=== PATIENT | male | born 1940 | race Caucasian/White ===

== ENCOUNTER 2023-03-11 09:52 | Inpatient (IN) ==
[2023-03-11] MEDS ORDERED: ONDANSETRON 4 MG/2 ML VIAL IV ONE (10:13)
[2023-03-11] MEDS ORDERED: LACTATED RINGERS 1,000 ML IV ONE (10:13)
[2023-03-11 10:35] LABS: POC Calcium, Ionized 1.19 (1.16-1.32); POC Creatinine 2.3 (0.6-1.2); POC Potassium 2.8 (3.3-5.1)
[2023-03-11] MEDS ORDERED: POTASSIUM CHLORIDE 20 MEQ in DEXTROSE 5% IN WATER 250 ML IV ONE (10:38)
[2023-03-11] MEDS ORDERED: POTASSIUM CHLORIDE 20 MEQ TABLET PO ONE (10:38)
[2023-03-11] MEDS ORDERED: ceFAZolin 1 GM VIAL IV ONE (10:39)
[2023-03-11 11:29] LABS: Basophils # (Auto) 0.08 K/mcL (0.00-0.30); Basophils % (Auto) 0.5 % (0.0-2.0); Eosinophils # (Auto) 0.05 K/mcL (0.00-0.70); Eosinophils % (Auto) 0.3 % (0.0-7.0); Hematocrit 37.6 % (40.1-51.0); Hemoglobin 12.6 g/dL (13.7-17.5); Lymphocytes # (Auto) 0.68 K/mcL (1.50-4.80); Lymphocytes % (Auto) 3.9 % (15.5-49.0); Mean Corpuscular HGB Conc 33.5 g/dL (31.0-36.0); Mean Platelet Volume 10.7 fL (8.8-12.5); Monocytes # (Auto) 1.53 K/mcL (0.10-0.90); Monocytes % (Auto) 8.9 % (1.0-12.0); Neutrophils % (Auto) 85.8 % (38.0-78.0); Platelet Count 405 K/mcL (140-440); RBC 4.18 M/mcL (4.63-6.08); Red Cell Distribution Width 12.8 % (11.5-14.5); WBC 17.2 K/mcL (4.5-11.0)
[2023-03-11] MEDS ORDERED: 0.9 % SODIUM CHLORIDE 1,000 ML IV ONE (11:44)
[2023-03-11 11:50] LABS: ALT/SGPT 16 U/L (<40); AST/SGOT 11 U/L (<40); Albumin 3.9 gm/dL (3.2-5.2); Alkaline Phosphatase 75 U/L (39-117); Bilirubin,Direct < 0.2 mg/dL (0-0.3); Bilirubin,Total 0.7 mg/dL (0.1-1.0); Globulin 3.8 gm/dL (2.2-3.7)
[2023-03-11 13:08] LABS: POC Calcium, Ionized 1.09 (1.16-1.32); POC Creatinine 1.9 (0.6-1.2); POC Potassium 3.1 (3.3-5.1)
[2023-03-11] MEDS ORDERED: MAGNESIUM SULFATE 2 GM/50 ML BAG IV PRN (16:16)
[2023-03-11] MEDS ORDERED: ONDANSETRON 4 MG/2 ML VIAL IV PRN (16:16)
[2023-03-11] MEDS ORDERED: 0.9 % SODIUM CHLORIDE 1,000 ML IV SCH (16:16)
[2023-03-11] MEDS ORDERED: POTASSIUM CHLORIDE 40 MEQ in DEXTROSE 5% IN WATER 500 ML IV PRN (16:16)
[2023-03-11] MEDS ORDERED: BISMUTH SUBSALICYLATE 15 ML ORAL.SUSP PO ONE (16:16)
[2023-03-11] MEDS ORDERED: IPRATROPIUM/ALBUTEROL 3 ML AMPUL.NEB NEB PRN (16:16)
[2023-03-11] MEDS ORDERED: ACETAMINOPHEN 325 MG TABLET PO PRN (16:16)
[2023-03-11] MEDS ORDERED: POTASSIUM CHLORIDE 20 MEQ TABLET PO PRN ×2 (16:16)
[2023-03-11] MEDS ORDERED: BISMUTH SUBSALICYLATE 15 ML ORAL.SUSP PO PRN (16:16)
[2023-03-11 16:17] LABS: Eosinophils % (Manual) 1 % (0-7); Lymphocytes % 6 % (15-49); Monocytes % (Manual) 5 % (1-12); Platelet Estimate NORMAL (Normal); RBC Morphology NORMAL (Normal); Segmented Neutrophils % 88 % (38-78)
[2023-03-11 18:09] LABS: Appearance,Urine CLOUDY (Clear); Bacteria,Urine FEW /hpf (0); Bilirubin,Urine Negative (Negative); Color,Urine YELLOW; Culture Indicated,Urine Yes; Glucose,Urine (UA) Negative (Negative); Ketones,Urine 5 mg/dL (Negative); Leukocyte Esterase,Urine 500 /uL (Negative); Mucus,Urine FEW /hpf; Nitrate,Urine Negative (Negative); Protein,Urine Negative (Negative); Specific Gravity,Urine 1.011 (1.000-1.035); Uric Acid Crystals,Urine FEW /hpf; Urine Blood 0.03 mg/dL (Negative); Urine RBC 4 /hpf (0-3); Urine Squamous Epithelial Cell 0 /hpf (0-4); Urine WBC 145 /hpf (0-4); Urobilinogen,Urine Negative
[2023-03-11] MEDS ORDERED: HEPARIN 5,000 UNIT/ML VIAL SQ SCH (21:00)
[2023-03-11] MEDS: 0.9 % SODIUM CHLORIDE 10 ML SYRINGE IV SCH (21:02)
[2023-03-11] MEDS: cefTRIAXone 1 GM VIAL IV SCH (21:02)
[2023-03-12] MEDS: 0.9 % SODIUM CHLORIDE 10 ML SYRINGE IV SCH ×3 (05:01→21:17)
[2023-03-12 06:59] LABS: Basophils # (Auto) 0.07 K/mcL (0.00-0.30); Basophils % (Auto) 0.5 % (0.0-2.0); Eosinophils # (Auto) 0.08 K/mcL (0.00-0.70); Eosinophils % (Auto) 0.6 % (0.0-7.0); Hematocrit 32.5 % (40.1-51.0); Hemoglobin 11.4 g/dL (13.7-17.5); Lymphocytes # (Auto) 0.72 K/mcL (1.50-4.80); Lymphocytes % (Auto) 5.3 % (15.5-49.0); Mean Cell Volume 85.8 fL (80.0-100.0); Mean Corpuscular HGB Conc 35.1 g/dL (31.0-36.0); Mean Platelet Volume 11.2 fL (8.8-12.5); Monocytes # (Auto) 1.39 K/mcL (0.10-0.90); Monocytes % (Auto) 10.2 % (1.0-12.0); Neutrophils % (Auto) 82.8 % (38.0-78.0); Platelet Count 341 K/mcL (140-440); RBC 3.79 M/mcL (4.63-6.08); Red Cell Distribution Width 12.8 % (11.5-14.5); WBC 13.6 K/mcL (4.5-11.0)
[2023-03-12 07:26] LABS: ALT/SGPT 13 U/L (<40); AST/SGOT 13 U/L (<40); Albumin 3.3 gm/dL (3.2-5.2); Alkaline Phosphatase 65 U/L (39-117); Bilirubin,Direct < 0.2 mg/dL (0-0.3); Bilirubin,Total 0.5 mg/dL (0.1-1.0); Blood Urea Nitrogen 38 mg/dL (8-23); Calcium 8.9 mg/dL (8.6-10.4); Carbon Dioxide 20 mmol/L (22-30); Chloride 103 mmol/L (96-108); Globulin 3.4 gm/dL (2.2-3.7); Glomerular Filtration Rate 51; Glucose 101 mg/dL (70-105); Lactate Dehydrogenase 161 U/L (135-225); Phosphorous 2.1 mg/dL (2.5-4.5); Triglycerides 91 mg/dL (<150); Uric Acid 9.2 mg/dL (2.5-8.0)
[2023-03-12] MEDS: cefTRIAXone 1 GM VIAL IV SCH (09:10)
[2023-03-12] MEDS: TAMSULOSIN 0.4 MG CAPSULE PO SCH (09:11)
[2023-03-12] MEDS: ENOXAPARIN 40 MG/0.4 ML SYRINGE SQ SCH (09:11)
[2023-03-12] MEDS: PHOSPHORUS 250 MG TABLET PO SCH ×4 (09:12→20:17)
[2023-03-12] MEDS: VANCOMYCIN 125 MG CAPSULE PO SCH ×4 (09:25→20:18)
[2023-03-12] MEDS ORDERED: 0.9 % SODIUM CHLORIDE 1,000 ML IV SCH (09:30)
[2023-03-12] MEDS: SIMVASTATIN 40 MG TABLET PO SCH (20:18)
[2023-03-12 23:34] LABS: Phosphorous 2.2 mg/dL (2.5-4.5)
[2023-03-13] MEDS: 0.9 % SODIUM CHLORIDE 10 ML SYRINGE IV SCH ×3 (05:32→21:05)
[2023-03-13 06:24] LABS: Basophils # (Auto) 0.06 K/mcL (0.00-0.30); Basophils % (Auto) 0.5 % (0.0-2.0); Eosinophils # (Auto) 0.18 K/mcL (0.00-0.70); Eosinophils % (Auto) 1.5 % (0.0-7.0); Hemoglobin 10.4 g/dL (13.7-17.5); Lymphocytes # (Auto) 0.93 K/mcL (1.50-4.80); Lymphocytes % (Auto) 7.7 % (15.5-49.0); Mean Cell Volume 90.9 fL (80.0-100.0); Mean Corpuscular HGB Conc 32.5 g/dL (31.0-36.0); Mean Platelet Volume 10.6 fL (8.8-12.5); Monocytes # (Auto) 1.33 K/mcL (0.10-0.90); Neutrophils % (Auto) 78.9 % (38.0-78.0); Platelet Count 324 K/mcL (140-440); RBC 3.52 M/mcL (4.63-6.08); WBC 12.1 K/mcL (4.5-11.0)
[2023-03-13 07:11] LABS: Blood Urea Nitrogen 20 mg/dL (8-23); Calcium 8.6 mg/dL (8.6-10.4); Carbon Dioxide 24 mmol/L (22-30); Chloride 103 mmol/L (96-108); Glomerular Filtration Rate 70; Glucose 106 mg/dL (70-105)
[2023-03-13] MEDS ORDERED: POTASSIUM CHLORIDE 20 MEQ in DEXTROSE 5% IN WATER 250 ML IV ONE (09:00)
[2023-03-13] MEDS: cefTRIAXone 1 GM VIAL IV SCH (09:11)
[2023-03-13] MEDS: ENOXAPARIN 40 MG/0.4 ML SYRINGE SQ SCH (09:12)
[2023-03-13] MEDS: PHOSPHORUS 250 MG TABLET PO SCH ×2 (09:12→21:05)
[2023-03-13] MEDS: POTASSIUM CHLORIDE 20 MEQ TABLET PO SCH ×3 (09:12→18:04)
[2023-03-13] MEDS: TAMSULOSIN 0.4 MG CAPSULE PO SCH (09:13)
[2023-03-13] MEDS: VANCOMYCIN 125 MG CAPSULE PO SCH ×4 (09:14→21:05)
[2023-03-13 09:58] LABS: Blood Urea Nitrogen 17 mg/dL (8-23); Calcium 8.6 mg/dL (8.6-10.4); Carbon Dioxide 23 mmol/L (22-30); Chloride 105 mmol/L (96-108); Glomerular Filtration Rate 80; Glucose 101 mg/dL (70-105)
[2023-03-13 18:28] LABS: Phosphorous 1.3 mg/dL (2.5-4.5)
[2023-03-13 18:32] LABS: Blood Urea Nitrogen 19 mg/dL (8-23); Calcium 8.8 mg/dL (8.6-10.4); Carbon Dioxide 22 mmol/L (22-30); Chloride 106 mmol/L (96-108); Glomerular Filtration Rate 63; Glucose 136 mg/dL (70-105)
[2023-03-13] MEDS: SIMVASTATIN 40 MG TABLET PO SCH (21:05)
[2023-03-14 01:51] LABS: Blood Urea Nitrogen 15 mg/dL (8-23); Calcium 8.5 mg/dL (8.6-10.4); Carbon Dioxide 23 mmol/L (22-30); Chloride 106 mmol/L (96-108); Glomerular Filtration Rate 80; Glucose 109 mg/dL (70-105)
[2023-03-14] MEDS: 0.9 % SODIUM CHLORIDE 10 ML SYRINGE IV SCH ×3 (05:22→20:00)
[2023-03-14 07:22] LABS: Blood Urea Nitrogen 13 mg/dL (8-23); Calcium 8.8 mg/dL (8.6-10.4); Carbon Dioxide 23 mmol/L (22-30); Chloride 106 mmol/L (96-108); Glomerular Filtration Rate 84; Glucose 97 mg/dL (70-105)
[2023-03-14] MEDS: ENOXAPARIN 40 MG/0.4 ML SYRINGE SQ SCH (08:40)
[2023-03-14] MEDS: cefTRIAXone 1 GM VIAL IV SCH (08:40)
[2023-03-14] MEDS: POTASSIUM CHLORIDE 20 MEQ TABLET PO SCH ×3 (08:41→16:58)
[2023-03-14] MEDS: VANCOMYCIN 125 MG CAPSULE PO SCH ×4 (08:41→19:59)
[2023-03-14] MEDS: PHOSPHORUS 250 MG TABLET PO SCH ×2 (08:41→19:59)
[2023-03-14] MEDS: TAMSULOSIN 0.4 MG CAPSULE PO SCH (08:41)
[2023-03-14] MEDS: SIMVASTATIN 40 MG TABLET PO SCH (19:59)
[2023-03-15] MEDS ORDERED: CEFEPIME 1 GM VIAL ONE (01:51)
[2023-03-15] MEDS: CEFEPIME 1 GM VIAL IV SCH ×3 (01:57→20:54)
[2023-03-15] MEDS: 0.9 % SODIUM CHLORIDE 10 ML SYRINGE IV SCH ×3 (04:59→20:54)
[2023-03-15 08:02] LABS: Blood Urea Nitrogen 8 mg/dL (8-23); Calcium 8.7 mg/dL (8.6-10.4); Carbon Dioxide 21 mmol/L (22-30); Chloride 108 mmol/L (96-108); Glomerular Filtration Rate 84; Glucose 93 mg/dL (70-105)
[2023-03-15] MEDS: TAMSULOSIN 0.4 MG CAPSULE PO SCH (08:23)
[2023-03-15] MEDS: PHOSPHORUS 250 MG TABLET PO SCH ×2 (08:23→20:54)
[2023-03-15] MEDS: VANCOMYCIN 125 MG CAPSULE PO SCH ×4 (08:24→20:54)
[2023-03-15] MEDS: POTASSIUM CHLORIDE 20 MEQ TABLET PO SCH ×3 (08:24→17:20)
[2023-03-15] MEDS: ENOXAPARIN 40 MG/0.4 ML SYRINGE SQ SCH (08:24)
[2023-03-15 10:43] LABS: Basophils # (Auto) 0.09 K/mcL (0.00-0.30); Eosinophils # (Auto) 0.28 K/mcL (0.00-0.70); Eosinophils % (Auto) 3.2 % (0.0-7.0); Hematocrit 33.2 % (40.1-51.0); Hemoglobin 10.4 g/dL (13.7-17.5); Lymphocytes # (Auto) 0.77 K/mcL (1.50-4.80); Lymphocytes % (Auto) 8.9 % (15.5-49.0); Mean Cell Volume 94.6 fL (80.0-100.0); Mean Corpuscular HGB Conc 31.3 g/dL (31.0-36.0); Monocytes % (Auto) 10.4 % (1.0-12.0); Neutrophils % (Auto) 75.8 % (38.0-78.0); Platelet Count 328 K/mcL (140-440); RBC 3.51 M/mcL (4.63-6.08); Red Cell Distribution Width 13.2 % (11.5-14.5); WBC 8.6 K/mcL (4.5-11.0)
[2023-03-15] MEDS: SIMVASTATIN 40 MG TABLET PO SCH (20:54)
[2023-03-16] MEDS: 0.9 % SODIUM CHLORIDE 10 ML SYRINGE IV SCH (04:15)
[2023-03-16] MEDS: ENOXAPARIN 40 MG/0.4 ML SYRINGE SQ SCH (08:23)
[2023-03-16] MEDS: PHOSPHORUS 250 MG TABLET PO SCH (08:24)
[2023-03-16] MEDS: TAMSULOSIN 0.4 MG CAPSULE PO SCH (08:24)
[2023-03-16] MEDS: CEFEPIME 1 GM VIAL IV SCH (08:24)
[2023-03-16] MEDS: VANCOMYCIN 125 MG CAPSULE PO SCH ×2 (08:24→12:30)
[2023-03-16] MEDS: POTASSIUM CHLORIDE 20 MEQ TABLET PO SCH ×2 (08:24→12:30)
== END 2023-03-16 14:30 ==
LOC: ED 09:52 → MEDSUR 16:00
PROVIDERS: ADMIT Internal Medicine; ATTEND Internal Medicine